=== PATIENT | female | born 1975 | race African-American/Black ===

== ENCOUNTER 2018-03-20 09:28 | Emergency (ER) | payer OTHER ==
[2018-03-20 10:19] LABS: #Eosinphils 0.1 thou/uL (0.0-0.7); #Lymphocytes 0.9 thou/uL (1.20-3.40); #Monocytes 0.1 thou/uL (0.11-0.59); #Neutrophils 2.7 thou/uL (1.40-6.50); %Basophils 0.7 % (0.0-1.0); %Eosinophils 1.4 % (0.0-10.0); %Lymphocytes 24.2 % (21.0-51.0); %Monocytes 1.5 % (0.0-10.0); %Neutrophils 72.1 % (42.0-75.0); Hemoglobin 13.8 g/dL (12.0-16.0); Mean Corpuscular HGB CONC 33.6 g/dL (32.0-36.0); Mean Corpuscular Hemoglobin 26.3 pg (27.0-31.0); Mean Corpuscular Volume 78.2 fL (78.0-98.0); Mean Platelet Volume 8.9 fL (7.4-10.4); Platelet Count 137 thou/uL (130-400); Red Blood Cell (RBC) Count 5.23 mill/uL (4.20-5.40); White Blood Cell (WBC) Count 3.8 thou/uL (4.8-10.8)
--- NOTE | 2018-03-20 10:24 | RAD ---
CHEST ONE VIEW: History: Palpitations. Comparison: 05-01-17 FINDINGS: Cardiac silhouette is magnified by projection. Pulmonary vasculature is now slightly engorged. Medias tinum is midline. No lobar consolidation or evidence of pneumothorax. 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 IMPRESSION: Borderline pulmonary vascular congestion. POS: [facility]
[2018-03-20 10:40] LABS: ALT (SGPT) 31 U/L (8-55); AST (SGOT) 43 U/L (5-34); Albumin 3.4 g/dL (3.5-5.0); Alkaline Phosphatase 85 U/L (40-150); Anion Gap 12 mmol/L (10-20); BUN (Urea Nitrogen) 10 mg/dL (7.0-18.7); Bilirubin, Total 0.6 mg/dL (0.2-1.2); CK (CPK) 70 U/L (29-168); Calc. Creatinine Clearance 0 mL/min (70-130); Calcium 8.9 mg/dL (7.8-10.44); Carbon Dioxide 26 mmol/L (22-29); Chloride 101 mmol/L (98-107); Estimated GFR-MDRD Greater than 90; Globulin 3.6 g/dL (2.4-3.5); Glucose 212 mg/dL (70-105); Sodium 136 mmol/L (136-145)
[2018-03-20 10:45] LABS: CKMB 1.1 ng/mL (0-6.6); Troponin I 0.015 ng/mL (< 0.028)
[2018-03-20 10:46] LABS: Potassium 2.5 mmol/L (3.5-5.1)
[2018-03-20] MEDS ORDERED: Potassium Chloride 20 MEQ TAB ONE (11:32)
[2018-03-20] MEDS ORDERED: Magnesium Sulfate 2 GM in Sodium Chloride 0.9% 100 ML IVPB SCH (12:00)
[2018-03-20] MEDS ORDERED: Potassium Chloride 20 MEQ in Sodium Chloride 0.9% 250 ML 250 ML IVPB ONE (12:00)
--- NOTE | 2018-03-20 12:11 | CT ---
CT ANGIO CHEST WITH CONTRAST: Multiple axial tomograms were obtained through the chest following pulmonary angio protocol with mult iplanar reconstruction and 3D post processing. INDICATION: Dyspnea. Heart palpitations. Assess for pulmonary embolus. FINDINGS: Pulmonary arteries show adequate opacification. No evidence of pulmonary embolus identified. Thorac ic aorta is unremarkable. No evidence of dissection. Heart is mildly enlarged and there is mild vascular engorgement. No focal infiltrate. No effusion. Nonspecific mediastinal lymph nodes are noted. There are numerous small lymph nodes in the AP windo w and paratracheal region. Images through the upper abdomen unremarkable. Thyroid is mildly enlarged and somewhat heterogeneous. IMPRESSION: 1. No evidence of pulmonary embolus. 2. Mild cardiomegaly and mild vascular engorgement. 3. Nonspecific mediastinal and hilar lymph nodes. 4. Enlarged heterogeneous thyroid. POS: [facility]
[2018-03-20] MEDS ORDERED: ISOVUE-370 76%-LOCM 1 ML ONE (12:13)
--- NOTE | 2018-03-20 14:10 | RAD ---
TWO VIEWS RIGHT HIP: History: Right hip pain. FINDINGS: AP and frogleg views of the right hip obtained and demonstrates osteophytes seen in the lateral aspec t of the right acetabulum. This is compatible with a moderate degree of osteoarthritis. This is uncha nged since the previous radiograph from 09-13-16. IMPRESSION: Right hip osteoarthritic changes. No acute fractures or bony lesions seen. POS: [facility]
[2018-03-20 14:28] LABS: Bilirubin Negative (Negative); Blood, Urine Negative (Negative); Clarity CLEAR (Clear); Glucose, Urine (Dipstick) Negative (Negative); Leukocyte Negative (Negative); Nitrite Negative (Negative); Protein, Urine (Dipstick) 100 mg/dL (Neg-Trace); Urobilinogen 0.2 mg/dL (0.2-1.0); pH, Urine 6.5 (5.0-9.0)
[2018-03-20 14:30] LABS: Bacteria/HPF None Seen HPF (None Seen); Hyaline Casts/LPF 0-3 HYALINE CAST LPF (0-3 Hyaline); Pathc Cast-AUWi Flag 0.29 (0-2.49); RBC/HPF 0-3 HPF (0-3); Squamous Epithelial 0-3 HPF (0-3); WBC/HPF 0-3 HPF (0-3)
[2018-03-20 14:34] LABS: Specific Gravity, Urine 1.048 (1.002-1.036)
== END 2018-03-20 15:10 | disposition home or self-care (01) ==
LOC: ERS 09:28
DX: E87.6 Hypokalemia (principal); J01.90 Acute sinusitis, unspecified; E11.9 Type 2 diabetes mellitus without complications; I10 Essential (primary) hypertension; Z87.891 Personal history of nicotine dependence
CPT/HCPCS: 36415; 71045; 71275; 80053; 81003; 81015; 82550; 82553; 83880; 84484; 85025; 93005; 94760; 96365; 96366; 96368; J3475; J3480; J7050